=== PATIENT | female | born 1980 | race Caucasian/White ===

== ENCOUNTER 2020-11-04 10:41 | Emergency (ER) | payer OTHER, SELFPAY ==
[2020-11-04 10:45] VITALS: BP 146/94; PULSE 102; RESP 19; TEMP 36.9; O2SAT 98; BMI 46.0
--- NOTE | 2020-11-04 11:16 | HMH.EDUTC ---
[facility] [place] Clinical Impression: Bronchitis Sinusitis Qualifiers: Sinusitis location: unspecified location Chronicity: unspecified Qualified Code(s): J32.9 - Chronic sinusitis, unspecified Disposition: Home, Self-Care Condition on Discharge: Good Instructions: Sinusitis, Acute Bronchitis, DI for Sinusitis Additional Instructions: ? Start antibiotic today. Be sure to complete entire prescription even if feeling better ? Monitor temp. Tylenol every 4 hours as needed and / or ibuprofen every 6 hours as needed ( As long as your primary care physician has told you that it ok to take both. For fever/aches/pains ER if no less than 101 despite Tylenol or Motrin ? Humidifier/vaporizer or hot steamy shower ? Inhaler every 4-6 hours as needed like we discussed. If unsure how to use it, ask pharmacist to demonstrate how. Should help open airways and improve cough, wheezing, and shortness of breath ? Mucinex during the day for your cough and cough suppressant only at night. Be sure to drink lots of water. Insurance may not cover a prescriptions for mucinex. Might be cheaper to get 400mg tablets and take 2 tablet in the morning, mid-day and evening with lots of water. *Tessalon Perles will not cause drowsiness but use at bedtime to help stop cough so that you may get some rest. *Start steroid today. Helps with inflammation therefore, cough and wheezing. Follow directions on the package. Reviewed side effects. Patient reports taking them before. Follow up IMMEDIATELY for new or worsening of symptoms OR no noticeable improvement over the next 48-72 hours. 911 immediately for any life threatening symptoms such as chest pain or difficulty breathing Prescriptions: predniSONE [Prednisone 20mg Tab] 20 mg PO BID 5 Days #10 tab Transmission Status: Pending to [facility] # Benzonatate [Tessalon Perle 100mg Cap*] 100 mg PO TID PRN #15 cap PRN Reason: Cough Transmission Status: Pending to [facility] # Azithromycin [Z-Bhavik 250mg Tab] 250 mg PO DIRECTED #6 tab Transmission Status: Pending to [facility] # Referrals: Jeffrey Segura [Primary Care Provider] - As needed Time of Disposition: 11:25 Medical Decision Making - Riaz Inquiry Pt receiving controlled substance: No Riaz was queried for this patient: No Vital Signs: 11/04/20 10:45 Temperature 98.4 F Temperature Source Oral Pulse Rate [Right Brachial] 102 H Respiratory Rate 19 Blood Pressure [Right Arm] 146/94 H Blood Pressure Mean [Right Arm] 111 Blood Pressure Source [Right Arm] Automatic Cuff Blood Pressure Position [Right Arm] Sitting 02 Sat by Pulse Oximetry 98 Oxygen Delivery Method Room Air Medical Decision Narrative: Discussed CXR and patient declined at this time, Patient reports that she has taken both azithromycin and prednisone before without reactions or complications [facility] [place] - General Stated complaint: cough Time Seen by Provider: 11/04/20 11:16 Mode of Arrival: Ambulatory Source of Information: Patient Limitations: No Limitations Description of Symptoms (Recalled from Triage Doc. by RN): PATIENT C/O PRODUCTIVE COUGH, SOA, AND VOMITING X 3 DAYS HEENT Symptoms (Recalled from RN notes): No Resp Symptoms (Recalled from RN notes): Yes Skin Symptoms (Recalled from RN notes): No MS Symptoms (Recalled from RN notes): No Functional Status (Recalled from RN notes): WNL - History of Present Illness Provider Complaint: Patient state that she started feeling bad over a week ago with sinus congestion and drainage in the back of her throat State that now it has moved down into her chest States that at times she is able to cough up some mucous and feels the burning in the back of her throat when she coughs like she gets when she gets bronchitis States that she gets it about every year and has to get antibiotics States that she will cough so much at times that it makes her vomit. State that she has a history of ashtma and
[2020-11-04 11:29] VITALS: BP 146/94; PULSE 102; RESP 19; TEMP 36.9; O2SAT 98
== END 2020-11-04 11:30 | disposition home or self-care (01) ==
PROVIDERS: Emergency Provider Nurse Practitioner; PCP Pediatrics
DX: J20.9 Acute bronchitis, unspecified (principal); J32.9 Chronic sinusitis, unspecified; F17.210 Nicotine dependence, cigarettes, uncomplicated
CPT/HCPCS: 99202; G0463

== ENCOUNTER 2021-06-16 10:32 | Emergency (ER) | payer OTHER, SELFPAY ==
[2021-06-16 11:00] VITALS: BP 114/78; PULSE 105; RESP 18; TEMP 37.1; O2SAT 98; BMI 44.9
[2021-06-16 11:32] VITALS: BP 114/78; PULSE 105; RESP 18; TEMP 37.1; O2SAT 98
--- NOTE | 2021-06-16 11:32 | HMH.EDUTC ---
[place] Disposition Clinical Impression: URI (upper respiratory infection) Qualifiers: URI type: unspecified URI Qualified Code(s): J06.9 - Acute upper respiratory infection, unspecified Disposition: Home, Self-Care Condition on Discharge: Good Instructions: DI for Fever (Symptom) -- Adult Additional Instructions: *Monitor Temp, Over the counter Motrin or Tylenol as directed/as needed Tylenol every 4 hours and Motrin every 6 hours (as long as your family doctor has told you that you can take it) for fever or pain. 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 Those results are typically sent to your primary care. Be sure to follow up in 2-3 days with your family doctor/primary care physician if no improvement so they can review those result and treat if necessary. If you don?t have a primary care doctor, I recommend you get one but in the mean time, you will have to return to a walk in clinic Follow up IMMEDIATELY for new or worsening symptoms or no Noticeable improvement over the next 48-72 hours. 911 for difficulty breathing or swallowing You were tested for today for COVID19 your test result should be back in the next 48-72 hours, you may check your results on the [facility] My health portal If you are positive someone from the Hospital will be calling you Make sure to drink plenty of water and gatoraid and take vitamin C, D and zinc Referrals: Jeffrey Segura [Primary Care Provider] - As needed Time of Disposition: 12:21 Medical Decision Making - Riaz Inquiry Pt receiving controlled substance: No Riaz was queried for this patient: No Vital Signs: 06/16/21 11:00 06/16/21 11:32 Temperature 98.7 F 98.7 F Temperature Source Oral Pulse Rate 105 H Pulse Rate [Right Brachial] 105 H Respiratory Rate 18 18 Blood Pressure 114/78 Blood Pressure [Right Arm] 114/78 Blood Pressure Mean [Right Arm] 90 Blood Pressure Source [Right Arm] Automatic Cuff Blood Pressure Position [Right Arm] Sitting 02 Sat by Pulse Oximetry 98 Oxygen Delivery Method Room Air - Lab Data Lab results reviewed: Yes: I reviewed the patient's lab results. Lab Results 06/16/21 11:19: Influenza Type A Ag Negative, Influenza Type B Ag Negative 06/16/21 11:19: Group A Strep Rapid Negative Orders (Tests/Meds): ORDERS Category Date Time Status Covid-19 Nasal PCR ([facility]) Routine Lab 06/16/21 11:10 Received Strep Screen Confirmation Stat Micro 06/16/21 11:19 Received [facility] UTC HPI - General Stated complaint: fatigue, cough, nausea, TEJEDA Time Seen by Provider: 06/16/21 11:32 Mode of Arrival: Ambulatory Source of Information: Patient Limitations: No Limitations Description of Symptoms (Recalled from Triage Doc. by RN): PATIENT C/O COUGH, CONGESTION, BODY ACHES, AND FEVER X 2 DAYS HEENT Symptoms (Recalled from RN notes): Yes Resp Symptoms (Recalled from RN notes): No Skin Symptoms (Recalled from RN notes): No MS Symptoms (Recalled from RN notes): No Functional Status (Recalled from RN notes): WNL - History of Present Illness Provider Complaint: Patient state that she has not felt well for several days States that she has been having fatigue, body aches, chills, and cough States that today she was still not feeling well and her two of her kids so they came in to get tested and checked out - Related Data Home Medications Medication Instructions Recorded Confirmed Albuterol Sulfate [Albuterol 1 neb IH Q6HP PRN 11/04/20 11/04/20 0.083% 2.5mg/3mL neb] Previous Rx's Medication Instructions Recorded Azithromycin [Z-Bhavik 250mg Tab] 250 mg PO DIRECTED #6 tab 11/04/20 Benzonatate [Tessalon Perle 100mg 100 mg PO TID PRN #15 ca
[2021-06-16 11:43] LABS: UTC Influenza A Antigen Negative (Negative)
[2021-06-16 11:44] LABS: UTC Influenza B Antigen Negative (Negative)
[2021-06-16 12:09] LABS: Strep Scrn Group A (Rapid) Negative (Negative)
== END 2021-06-16 12:30 | disposition home or self-care (01) ==
PROVIDERS: Emergency Provider Nurse Practitioner; PCP Pediatrics
DX: U07.1 COVID-19 (principal); J06.9 Acute upper respiratory infection, unspecified; F17.210 Nicotine dependence, cigarettes, uncomplicated
CPT/HCPCS: 87430; 87804; 99203; C9803; G0463; U0003; U0005

== ENCOUNTER 2021-07-24 16:36 | Emergency (ER) | payer OTHER, SELFPAY ==
[2021-07-24 16:50] VITALS: BP 131/87; PULSE 101; RESP 20; TEMP 36.8; O2SAT 95; BMI 41.5
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
[2021-07-24 17:35] VITALS: BP 131/87; PULSE 101; RESP 20; TEMP 36.8; O2SAT 95
== END 2021-07-24 17:42 | disposition home or self-care (01) ==
PROVIDERS: Emergency Provider Emergency Medicine; PCP Pediatrics
DX: T22.212A Burn of second degree of left forearm, initial encounter (principal); T23.202A Burn of second degree of left hand, unspecified site, initial encounter; T23.272A Burn of second degree of left wrist, initial encounter; T31.0 Burns involving less than 10% of body surface; F17.210 Nicotine dependence, cigarettes, uncomplicated; Z79.51 Long term (current) use of inhaled steroids; Z79.52 Long term (current) use of systemic steroids; Z79.899 Other long term (current) drug therapy; X13.1XXA Other contact with steam and other hot vapors, initial encounter; Y92.9 Unspecified place or not applicable; Y99.0 Civilian activity done for income or pay
CPT/HCPCS: 99283

== ENCOUNTER 2021-07-27 09:21 | Emergency (ER) | payer OTHER, SELFPAY ==
[2021-07-27 10:21] VITALS: BP 138/76; PULSE 84; RESP 18; TEMP 37; O2SAT 98; BMI 44.2
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
[2021-07-27 11:10] VITALS: BP 138/76; PULSE 84; RESP 18; TEMP 37
== END 2021-07-27 11:09 | disposition home or self-care (01) ==
PROVIDERS: Emergency Provider Nurse Practitioner Family; PCP Pediatrics
DX: T23.272A Burn of second degree of left wrist, initial encounter (principal); X08.8XXA Exposure to other specified smoke, fire and flames, initial encounter; Y92.69 Other specified industrial and construction area as the place of occurrence of the external cause; Y99.0 Civilian activity done for income or pay
CPT/HCPCS: 99211; G0463

== ENCOUNTER 2021-07-29 09:41 | Emergency (ER) | payer OTHER, SELFPAY ==
[2021-07-29 10:25] VITALS: BP 151/114; PULSE 112; RESP 20; TEMP 36.7; O2SAT 98; BMI 42.4
--- NOTE | 2021-07-29 11:13 | HMH.EDUTC ---
[facility] [place] Disposition Clinical Impression: Bronchitis Disposition: Home, Self-Care Condition on Discharge: Good Instructions: DI for Acute Bronchitis, Acute Bronchitis Additional Instructions: ? Start antibiotic today. Be sure to complete entire prescription even if feeling better ? Monitor temp. Tylenol every 4 hours as needed and / or ibuprofen every 6 hours as needed ( As long as your primary care physician has told you that it ok to take both. For fever/aches/pains ER if no less than 101 despite Tylenol or Motrin ? Humidifier/vaporizer or hot steamy shower ? Inhaler every 4-6 hours as needed like we discussed. If unsure how to use it, ask pharmacist to demonstrate how. Should help open airways and improve cough, wheezing, and shortness of breath *Promethazine DM cough syrup will cause drowsiness. Use only at night. No driving, operating machinery or caring for small children after taking it *Start steroid today. Helps with inflammation therefore, cough and wheezing. Follow directions on the package. Reviewed side effects. Patient reports taking them before. Follow up IMMEDIATELY for new or worsening of symptoms OR no noticeable improvement over the next 48-72 hours. 911 immediately for any life threatening symptoms such as chest pain or difficulty breathing Prescriptions: predniSONE [Prednisone 20mg Tab] 20 mg PO BID #10 tab Transmission Status: Pending to [id number] Promethazine/Dextromethorphan [Promethazine-Dm Syrup] 2.5 - 5 ml PO Q4H PRN #150 ml PRN Reason: Cough Transmission Status: Pending to [id number] Referrals: Jeffrey Segura [Primary Care Provider] - As needed Time of Disposition: 11:18 Medical Decision Making - Riaz Inquiry Pt receiving controlled substance: No Riaz was queried for this patient: No Vital Signs: 07/29/21 10:25 Temperature 98.1 F Temperature Source Oral Pulse Rate [Left Brachial] 112 H Respiratory Rate 20 Blood Pressure [Left Arm] 151/114 H Blood Pressure Mean [Left Arm] 126 Blood Pressure Source [Left Arm] Automatic Cuff Blood Pressure Position [Left Arm] Sitting 02 Sat by Pulse Oximetry 98 Oxygen Delivery Method Room Air [facility] [place] HPI - General Stated complaint: cough headache Time Seen by Provider: 07/29/21 11:13 Mode of Arrival: Ambulatory Source of Information: Patient Limitations: No Limitations Description of Symptoms (Recalled from Triage Doc. by RN): PATIENT C/O COUGH THAT HAS CAUSED HEADACHE AND VOMITING SINCE SUNDAY HEENT Symptoms (Recalled from RN notes): No Resp Symptoms (Recalled from RN notes): Yes Skin Symptoms (Recalled from RN notes): No MS Symptoms (Recalled from RN notes): No Functional Status (Recalled from RN notes): WNL - History of Present Illness Provider Complaint: Patient states that she has been having a cough, nasal congestion and at times coughing until she vomits States that she is on amoxicillin but needs something more for her cough - Related Data Home Medications Medication Instructions Recorded Confirmed Albuterol Sulfate [Albuterol 1 neb IH Q6HP PRN 11/04/20 11/04/20 0.083% 2.5mg/3mL neb] Previous Rx's Medication Instructions Recorded Azithromycin [Z-Bhavik 250mg Tab] 250 mg PO DIRECTED #6 tab 11/04/20 Benzonatate [Tessalon Perle 100mg 100 mg PO TID PRN #15 cap 11/04/20 Cap*] predniSONE [Prednisone 20mg 20 mg PO BID 5 Days #10 tab 11/04/20 Tab] Amoxicillin/Potassium Clav 1 tab PO BID #20 tab 07/27/21 [Amox-Clav 875-125 mg Tablet] Mupirocin [Bactroban 2% Ointment 1 applicatio TP TID 7 Days #1 gm 07/27/21 22gm tube] Promethazine/Dextromethorphan 2.5 - 5 ml PO Q4H PRN #150 ml 07/29/21 [Promethazine-Dm Syrup] predniSONE [Prednisone 20mg 20 mg PO BID #10 tab 07/29/21 Tab] Allergies Allergy/AdvReac Type Severity Reaction Status Date / Time No Known Allergies Allergy Verified 11/04/20 11:03 - Worker's Comp Is this a Worker's Comp case?: No [facility]
[2021-07-29 11:18] VITALS: BP 132/87; PULSE 112; RESP 20; TEMP 36.7; O2SAT 98
== END 2021-07-29 11:35 | disposition home or self-care (01) ==
PROVIDERS: Emergency Provider Nurse Practitioner; PCP Pediatrics
DX: J20.9 Acute bronchitis, unspecified (principal); F17.210 Nicotine dependence, cigarettes, uncomplicated
CPT/HCPCS: 99212; G0463

== ENCOUNTER 2022-03-29 10:28 | Emergency (ER) | payer OTHER, SELFPAY ==
--- NOTE | 2022-03-29 12:30 | EXP.UTC ---
Discharge Plan Disposition Patient Disposition: Home, Self-Care Condition: Good Prescriptions Prescriptions: New azithromycin [Zithromax] 250 mg tablet 250 mg PO UD DOSE PK Qty: 6 0RF Rx Instructions: Take two (2) tablets today, then one (1) tablet days #2 thru #5 benzonatate [benzonatate] 100 mg capsule 100 mg PO TIDP PRN (Reason: Cough) Qty: 30 0RF methylprednisolone 4 mg Tablets,Dose Pack 4 mg PO DIRECTED Qty: 21 0RF ondansetron 4 mg Tablet,Disintegrating 4 mg PO Q8H PRN (Reason: Nausea) Qty: 12 0RF No Action olanzapine [Zyprexa] 10 mg tablet 10 mg PO HS Qty: 30 1RF Qelbree 200 mg capsule,extended release 24hr 200 mg PO .COMPLEX Qty: 60 1RF Rx Instructions: take 1 daily for 2 weeks; then increase to 2 capsules daily albuterol sulfate 2.5 MG/NEB solution for nebulization 1 neb inhalation Q6HP PRN (Reason: ASTHMA) Referrals Follow up/Referrals: Jeffrey Segura [Primary Care Provider] - See instructions Activity Restrictions/Add. Instructions Additional Instructions/Restrictions: Drink plenty of fluids. Take tylenol or ibuprofen for pain or fever. Take the medications as directed. Follow up with your regular doctor. GO TO THE ER FOR ANY WORSENING SYMPTOMS Clinical Impressions Clinical Impression: Pharyngitis Stand Alone Forms Stand Alone Forms: Work/School Release Instructions Patient Instructions: DI for Viral Syndrome Discharge ED Provider: Grabiel Gabriel [facility] [place] General Stated complaint: vomiting, diarrhea, low grade fever, cough, TEJEDA Time Seen by Provider: 03/29/22 12:30 History of Present Illness Provider Complaint: She states that for the past 3 days she has had a productive cough, sore throat, chills, fever, n/v/d. She denies any shortness of breath. Related Data Home Medications Medication Instructions Recorded Confirmed albuterol sulfate 2.5 mg/3 mL 1 neb inhalation Q6HP PRN ASTHMA 11/04/20 01/13/22 (0.083 %) solution for nebulization Previous Rx's Medication Instructions Recorded olanzapine 10 mg tablet (Zyprexa) 10 mg PO HS #30 tabs 01/13/22 viloxazine 200 mg capsule,extended 200 mg PO .COMPLEX #60 caps 01/13/22 release 24 hr (Qelbree) azithromycin 250 mg tablet 250 mg PO UD DOSE PK #6 tabs 03/29/22 (Zithromax) benzonatate 100 mg capsule 100 mg PO TIDP PRN Cough #30 caps 03/29/22 methylprednisolone 4 mg tablets in 4 mg PO DIRECTED #21 tabs 03/29/22 a dose pack ondansetron 4 mg disintegrating 4 mg PO Q8H PRN Nausea #12 tabs 03/29/22 tablet Allergies Allergy/AdvReac Type Severity Reaction Status Date / Time latex Allergy Verified 03/29/22 12:39 PFSH PFSH Medical History Attention deficit disorder (ADD) in adult Bipolar II disorder Social History Smoking Status: Current every day smoker tobacco type: cigarettes packs per day: 1 alcohol intake: never substance use type: marijuana current occupational status: employed Travel in the last 8 weeks: None number of children: 6 ROS Obtained: Yes All systems reviewed & no additional complaints except as documented Constitutional Constitutional: Reports chills and Reports fever(s) Eyes Eyes: Denies eye discharge ENT Ears, Nose, Mouth, and Throat: Reports as per HPI Cardiovascular Cardiovascular: Denies chest pain Respiratory Respiratory: Denies chest congestion and Reports cough Gastrointestinal Gastrointestingal: Reports nausea; Denies abdominal pain, constipation, cramping, diarrhea or vomiting Musculoskeletal Musculoskeletal: Denies arthralgias Integumentary/Breasts Skin/Breast: Denies rash Neurologic Neurologic: Denies paresthesias Physical Exam General General appearance: alert and in no apparent distress Head Head exam: atraumatic, normocephalic and normal inspection Eye Eye exam: Present normal appearance, PER
[2022-03-29 12:37] VITALS: BP 130/101; PULSE 100; RESP 18; TEMP 36.9; O2SAT 99; BMI 45.7
[2022-03-29 12:53] LABS: UTC Influenza A Antigen Negative (Negative); UTC Influenza B Antigen Negative (Negative); UTC Strep Screen (Rapid) Negative (Negative)
[2022-03-29 13:15] VITALS: BP 130/101; PULSE 100; RESP 18; TEMP 36.9
== END 2022-03-29 13:16 | disposition home or self-care (01) ==
PROVIDERS: Emergency Provider Nurse Practitioner Family; PCP Pediatrics
DX: J02.9 Acute pharyngitis, unspecified (principal)
CPT/HCPCS: 87804; 87880; 99212; G0463

== ENCOUNTER 2022-07-02 12:51 | Emergency (ER) | payer OTHER, SELFPAY ==
--- NOTE | 2022-07-02 13:53 | EXP.UTC ---
Discharge Plan Disposition Patient Disposition: Home, Self-Care Condition: Good Prescriptions Prescriptions: New azithromycin [Zithromax] 250 mg tablet 250 mg PO UD DOSE PK Qty: 6 0RF Rx Instructions: Take two (2) tablets today, then one (1) tablet days #2 thru #5 benzonatate [benzonatate] 100 mg capsule 100 mg PO TIDP PRN (Reason: Cough) Qty: 30 0RF methylprednisolone 4 mg Tablets,Dose Pack 4 mg PO DIRECTED Qty: 21 0RF No Action Trintellix 10 mg tablet 10 mg PO .COMPLEX Qty: 30 1RF Rx Instructions: 10 mg PO take 1/2 tablet for 8 days; then increase to 1 tablet; albuterol sulfate 2.5 MG/NEB solution for nebulization 1 neb inhalation Q6HP PRN (Reason: ASTHMA) Referrals Follow up/Referrals: Jeffrey Segura [Primary Care Provider] - See instructions Activity Restrictions/Add. Instructions Additional Instructions/Restrictions: Drink plenty of fluids. Take tylenol or ibuprofen for pain or fever. Take the medications as directed. Follow up with your regular doctor. GO TO THE ER FOR ANY WORSENING SYMPTOMS Clinical Impressions Clinical Impression: Bronchitis Discharge ED Provider: Grabiel Gabriel [facility] [place] General Stated complaint: Cough,Congestion Time Seen by Provider: 07/02/22 13:53 History of Present Illness Provider Complaint: She states that for the past 2 days she has had sinus congestion, sore throat, and a cough. Related Data Home Medications Medication Instructions Recorded Confirmed albuterol sulfate 2.5 mg/3 mL 1 neb inhalation Q6HP PRN ASTHMA 11/04/20 01/13/22 (0.083 %) solution for nebulization Previous Rx's Medication Instructions Recorded vortioxetine 10 mg tablet 10 mg PO .COMPLEX #30 tabs 06/19/22 (Trintellix) azithromycin 250 mg tablet 250 mg PO UD DOSE PK #6 tabs 07/02/22 (Zithromax) benzonatate 100 mg capsule 100 mg PO TIDP PRN Cough #30 caps 07/02/22 methylprednisolone 4 mg tablets in 4 mg PO DIRECTED #21 tabs 07/02/22 a dose pack Allergies Allergy/AdvReac Type Severity Reaction Status Date / Time acetaminophen [From Lortab] Allergy Verified 07/02/22 14:21 hydrocodone [From Lortab] Allergy Verified 07/02/22 14:21 latex Allergy Verified 06/19/22 13:46 PFSH [facility] Disclaimer: The information contained in this section may have been updated after the patient was seen, as this information can be updated by other users. Medical History Attention deficit disorder (ADD) in adult Bipolar II disorder Social History Smoking Status: Current every day smoker tobacco type: cigarettes packs per day: 1 alcohol intake: never substance use type: marijuana current occupational status: employed Travel in the last 8 weeks: None number of children: 6 ROS Obtained: Yes All systems reviewed & no additional complaints except as documented Constitutional Constitutional: Reports chills and Reports fever(s) Eyes Eyes: Denies eye discharge ENT Ears, Nose, Mouth, and Throat: Reports as per HPI Cardiovascular Cardiovascular: Denies chest pain Respiratory Respiratory: Denies chest congestion and Reports cough Gastrointestinal Gastrointestingal: Reports nausea; Denies abdominal pain, constipation, cramping, diarrhea or vomiting Musculoskeletal Musculoskeletal: Denies arthralgias Integumentary/Breasts Skin/Breast: Denies rash Neurologic Neurologic: Denies paresthesias Physical Exam General General appearance: alert and in no apparent distress Head Head exam: atraumatic, normocephalic and normal inspection Eye Eye exam: Present normal appearance, PERRL and EOMI ENT ENT exam: Present normal exam, normal oropharynx, mucous membranes moist, TM's normal bilaterally and normal external ear exam Neck Neck exam: Present normal inspection, full ROM and trachea midline; Absent meningismus or lymphadenopathy Chest
[2022-07-02 14:00] VITALS: BP 126/82; PULSE 93; RESP 20; TEMP 36.8; O2SAT 95; BMI 48.6
[2022-07-02 15:02] VITALS: BP 126/82; PULSE 93; RESP 20; TEMP 36.8; O2SAT 95
== END 2022-07-02 15:01 | disposition home or self-care (01) ==
PROVIDERS: Emergency Provider Nurse Practitioner Family; PCP Pediatrics
DX: J40 Bronchitis, not specified as acute or chronic (principal)
CPT/HCPCS: 99212; 99213; G0463